=== PATIENT | female | born 1965 | race Caucasian/White ===

== ENCOUNTER 2024-01-06 19:07 | Emergency (ER) | payer OTHER, SELFPAY ==
[2024-01-06] VITALS (7 sets, daily range): BP systolic 169–205; BP diastolic 84–113; PULSE 62–68; RESP 18–20; TEMP 36.6; O2SAT 97–100; BMI 23.3
[2024-01-06] MEDS: ONDANSETRON 4 MG/2 ML INJ IV (19:31)
--- NOTE | 2024-01-06 19:37 | ED_ITS ---
HPI - Nausea/Vomiting/Diarrhea General Chief complaint: Nausea/Vomiting/Diarrhea Stated complaint: neck pain/N/V Time Seen by Provider: 01/06/24 19:21 Source: patient Mode of arrival: Ambulatory History of Present Illness HPI Narrative: 58-year-old woman who is visiting from [place] was feeling fine this morning, when they got to they are camping spot on when [facility] she will be having some nausea and then significant vomiting preceding to dry heaving. The dry heaving was such that she actually pulled some muscles in her neck which is exacerbated her pain and caused a significant headache. She describes dizziness when she stands up. Nobody else in the group is feeling ill. She has not had diarrhea she has not complaining of lower abdominal pain just upper abdominal pain from the dry heaving. She is not complaining of fevers, does not note that there was blood in any of the emesis. She has never had similar symptoms. Related Data Allergies Allergy/AdvReac Type Severity Reaction Status Date / Time No Known Drug Allergies Allergy Verified 01/06/24 19:24 Review of Systems Review of Systems Narrative: Pertinent positive and negative findings as per HPI Patient History Medical History (Updated 01/06/24 @ 22:58 by Lidia Pruett MD) Hypertension Social History Smoking Status: Former smoker Smoking Status: Former smoker alcohol intake frequency: other Substance Use Type: does not use Exam Initial Vital Signs Initial Vital Signs: Vital Signs Temperature 97.8 F 01/06/24 19:10 Pulse Rate 66 01/06/24 19:10 Respiratory Rate 20 01/06/24 19:10 Blood Pressure 205/93 H 01/06/24 19:10 Pulse Oximetry 97 01/06/24 19:10 Oxygen Delivery Method Room Air 01/06/24 19:10 General: Patient appears uncomfortable, diaphoretic from the work of dry heaving, she is able to give a complete and coherent history HEENT: Dry mucous membranes, normal sclera with reactive pupils, Neck: Tenderness along the right paraspinous muscles into the occipital insertion reproducing the neck pain and exacerbating her headache with palpation Respiratory: Lungs are clear to auscultation, no wheezing no rales no rhonchi. Full and symmetrical air movement Cardiac: Regular rate and rhythm no murmurs no bruits Abdomen: Soft, nontender, good bowel tones, no flank pain Skin: Slightly pale but otherwise Warm and dry, no rashes Neurologic: Grossly neurologically intact with no obvious asymmetries or abnormalities Extremities: No trauma, well perfused Psych: Cooperative, appropriate insight and affect Course Orders Ordered: ED Orders 01/06/24 19:20 Complete Blood Count AUTO DIFF Stat Comprehensive Metabolic Panel Stat Lipase Stat Magnesium Stat Ondansetron HCl (Ondansetron 4 Mg/2 Ml Inj) 4 mg IV NOW PRN PRN Reason: Nausea And Vomiting Last Admin: 01/06/24 19:31 Dose: 4 mg Documented By: SON Ondansetron HCl (Ondansetron 4 Mg Odt) 4 mg SL NOW PRN PRN Reason: Nausea And Vomiting Discontinued Medications Sodium Chloride (Normal Saline 0.9%) 1,000 mls @ 1,000 mls/hr IV BOLUS ONE Stop: 01/06/24 20:34 Last Infusion: 01/06/24 21:31 Dose: Infused Documented By: Admin: 01/06/24 19:38 Dose: 1,000 mls/hr Documented By: SON Ketorolac Tromethamine (Ketorolac 30 Mg/Ml Vial) 15 mg IV NOW ONE Stop: 01/06/24 19:36 Last Admin: 01/06/24 19:39 Dose: 15 mg Documented By: SON Vital Signs Vital signs: Vital Signs - 8 hr 01/06/24 19:10 01/06/24 19:27 01/06/24 19:30 Temperature 97.8 F Pulse Rate 66 67 Respiratory Rate 20 Blood Pressure 205/93 H 202/100 H Pulse Oximetry 97 100 Oxygen Delivery Method Room Air 01/06/24 19:30 01/06/24 20:00 01/06/24 20:00 Temperature Pulse Rate 62 68 Respiratory Rate Blood Pressure 195/97 H Pulse Oximetry 99 98 Oxygen Delivery Method 01/06/24 20:30 01/06/24 20:30 01/06/24 21:00 Temperature Pulse Rate 65 68 Respiratory Rate Blood Pressure 194/97 H Pulse Oximetry 99 99 Oxygen Delivery Method 01/06/24 21:00 Temperature Pulse Rate Respiratory Rate Blood Pressure 169/84 H Pulse Oximetry Oxygen Delivery Method MDM - Nausea/Vomiting/Diarrhea Lab Data 01/06/24 19:20 01/06/24 19:20 Labs: Lab Results 01/06/24 Range/Units 19:20 WBC 10.5 (4.5-11.0) X10^3/uL RBC 4.67 (4.0-5.2) X10^6/uL Hgb 14.4 (12.0-16.0) g/dL Hct 42.7 (36-46) % MCV 91.4 (80-100) fL MCH 30.9 (26-34) PG MCHC 33.7 (30-36) % RDW 13.2 (11.6-14.8) % Plt Count 195 (150-400) X10^3/uL Neut % (Auto) 49.7 L (50-75) % Lymph % (Auto) 42.0 H (25-40) % Hardy % (Auto) 7.0 (3-14) % Eos % (Auto) 0.9 L (2-4) % Baso % (Auto) 0.4 (0-2) % Neut # (Auto) 5200 (3605-1298) /uL Lymph # (Auto) 4400 (8641-9690) /uL Hardy # (Auto) 700 (0-900) /uL Eos # (Auto) 100 (0-450) /uL Baso # (Auto) 0 (0-100) /uL Sodium 136 L (137-145) mmol/L Potassium 3.4 (3.4-5.1) mmol/L Chloride 100 (98-107) mmol/L Carbon Dioxide 28 (22-32) mmol/L BUN 14 (7-17) mg/dL Creatinine 0.92 (0.52-1.04) mg/dL Estimated GFR > 60 (>60) mL/min BUN/Creatinine Ratio 15.2 (6-22) Glucose 148 H (70-100) mg/dL Calcium 9.2 (8.4-10.2) mg/dL Magnesium 2.1 (1.6-2.3) mg/dL Total Bilirubin 0.9 (0.2-1.3) mg/dL AST 41 H (14-36) IU/L ALT 28 (<35) IU/L Alkaline Phosphatase 98 (38-126) U/L Total Protein 7.5 (6.3-8.2) g/dL Albumin 4.7 (3.5-5.0) g/dL Globulin 2.8 (1.7-4.1) g/dL Albumin/Globulin Ratio 1.7 (1.0-2.8) Lipase 32 (23-300) U/L MDM Narrative Medical decision making narrative: CC: Acute nausea and vomiting with dry heaves causing acute neck strain leading to headache Complicating co-morbidities: Hypertension Data collected from: patient Social determinants of health that may influence the patients condition: Patient is visiting from out of town Differential considered: Food related illness, gastroenteritis, bowel obstruction Exam documented above, pertinent findings include: Appears slightly dry, abdomen is not showing signs of acute surgical findings, the right neck strain in occipital muscle insertion is causing her significant pain Lab Test results independently reviewed as above. Pertinent findings: CBC is unremarkable Chemistries are reassuring Treatments: Fluids, Toradol, Zofran. Oral Percocet Re-evaluations: Patient is feeling better. Nausea has resolved. Still has paraspinous muscle spasm radiating up to the occipital insertion and complaining of significant headache. We will give her a Percocet to help with this. The Toradol did begin to make a bit of a difference but she is still having pain. We will plan on sending her home with Zofran. Reviewed negative workup to date. There was no evidence of acute coronary event, obstruction, sepsis or intra- abdominal infection. Unclear what caused the significant vomiting but it does appear to be improved at this point. Questions are answered and she is safe for discharge Discharge Plan Departure Patient Disposition: Home Clinical Impression: Vomiting Qualifiers: Vomiting type: unspecified Nausea presence: with nausea Qualified Code(s): R 11.2 - Nausea with vomiting, unspecified Acute strain of neck muscle Qualifiers: Encounter type: initial encounter Qualified Code(s): S16.1XXA - Strain of muscle, fascia and tendon at neck level, initial encounter Instructions: DI for Vomiting -- Adult Activity Restrictions/Additional Instructions: Thank you for coming in today I am sorry that your vacation did not return agent quite as you were planning. Your blood work is actually quite reassuring. In the emergency department you were given fluids, Zofran to help with nausea and Toradol which is similar to ibuprofen but through your IV. I also gave you a Percocet to help with the persistent neck strain pain I did not find any life-threatening explanation for your symptoms today. I think that you likely are going to feel better after a good night sleep. It is okay to take Tylenol and ibuprofen tomorrow. I will send you home with a couple tablets of Zofran should you have recurrent nausea. If you find that you are getting worse or develop any new symptoms, please feel free to return to the emergency department for further evaluation. Stand Alone Forms: Patient Portal/API
[2024-01-06] MEDS: SODIUM CHLORIDE 0.9% 1,000 ML 1000 ML IV (19:38)
[2024-01-06] MEDS: KETOROLAC 30 MG/ML VIAL 15 MG IV (19:39)
[2024-01-06 21:56] LABS: Add Manual Diff / Slide Review NO; Basophils Absolute Auto 0 /uL (0-100); Basophils Percent Auto 0.4 % (0-2); Eosinophils Absolute Auto 100 /uL (0-450); Eosinophils Percent Auto 0.9 % (2-4); Hematocrit 42.7 % (36-46); Hemoglobin 14.4 g/dL (12.0-16.0); Lymphocytes Absolute Auto 4400 /uL (1100-4500); Mean Corpuscular HGB Conc 33.7 % (30-36); Mean Corpuscular Hemoglobin 30.9 PG (26-34); Mean Corpuscular Volume 91.4 fL (80-100); Monocytes Absolute Auto 700 /uL (0-900); Neutrophils Absolute Auto 5200 /uL (1500-7000); Neutrophils Percent Auto 49.7 % (50-75); Platelet Count 195 X10^3/uL (150-400); Red Blood Cell Count 4.67 X10^6/uL (4.0-5.2); Red Cell Distribution Width 13.2 % (11.6-14.8); White Blood Cell Count 10.5 X10^3/uL (4.5-11.0)
[2024-01-06 21:59] LABS: Alanine Aminotransferase 28 IU/L (<35); Albumin 4.7 g/dL (3.5-5.0); Albumin Globulin Ratio 1.7 (1.0-2.8); Alkaline Phosphatase 98 U/L (38-126); Aspartate Aminotransferase 41 IU/L (14-36); BUN Creatinine Ratio 15.2 (6-22); Bilirubin Total 0.9 mg/dL (0.2-1.3); Blood Urea Nitrogen 14 mg/dL (7-17); Calcium 9.2 mg/dL (8.4-10.2); Carbon Dioxide 28 mmol/L (22-32); Chloride 100 mmol/L (98-107); Estimated Glomerular Filt Rate > 60 mL/min (>60); Globulin 2.8 g/dL (1.7-4.1); Glucose 148 mg/dL (70-100); HEMOLYSIS < 15 (0-50); Lipase 32 U/L (23-300); Magnesium 2.1 mg/dL (1.6-2.3); Potassium 3.4 mmol/L (3.4-5.1); Sodium 136 mmol/L (137-145); Total Protein 7.5 g/dL (6.3-8.2)
[2024-01-06] MEDS: ONDANSETRON 4 MG ODT PREPACK 1 BOTTLE MISC (23:02)
[2024-01-06] MEDS: OXYCODONE/ACETAMINOPHEN 5/325 TABLET 1 TAB PO (23:02)
--- NOTE | 2024-01-06 23:09 | PC.NURSE ---
Flynn POTTER aware of pt's BP at time of discharge.
== END 2024-01-06 23:10 | disposition home or self-care (01) ==
PROVIDERS: Emergency Provider Emergency Medicine
DX: R11.2 Nausea with vomiting, unspecified (principal); S16.1XXA Strain of muscle, fascia and tendon at neck level, initial encounter; X58.XXXA Exposure to other specified factors, initial encounter
CPT/HCPCS: 36415; 80053; 83690; 83735; 85025; 96374; 96375; 99284; J1885; J2405